=== PATIENT | female | born 1990 | race Caucasian/White ===

== ENCOUNTER 2018-05-18 05:40 | Inpatient (IN) | payer BC ==
[2018-05-18 06:26] VITALS: BMI 29.5
[2018-05-18] MEDS ORDERED: Acetaminophen 500 MG TAB PO PRN (06:50)
[2018-05-18] MEDS ORDERED: Ondansetron PF 4 MG/2 ML Vial IVP PRN ×3 (06:50→19:18)
[2018-05-18] MEDS ORDERED: Zolpidem Tartrate 5 MG TAB PO PRN ×2 (06:50→19:18)
[2018-05-18] MEDS ORDERED: Butorphanol Tartrate 1 MG/ML VIAL SLOW IVP PRN (06:50)
[2018-05-18] MEDS ORDERED: Promethazine HCl 25 MG/ML VIAL IM PRN ×2 (06:50→14:52)
[2018-05-18] MEDS ORDERED: Lidocaine 1% (PF) 30 ML VIAL SC PRN (06:52)
[2018-05-18] MEDS ORDERED: Acetaminophen/Codeine 30-300mg Tablet PO PRN ×4 (06:52→19:18)
[2018-05-18] MEDS ORDERED: Misoprostol 200 MCG TAB PR PRN (06:52)
[2018-05-18] MEDS ORDERED: NS / Oxytocin 40 units/1000ml 1,000 ML IV PRN (06:52)
[2018-05-18] MEDS ORDERED: Ibuprofen 800 MG TAB PO PRN (06:52)
[2018-05-18] MEDS ORDERED: NS w/ Oxytocin 10 units 500 ML IV SCH ×2 (07:00)
[2018-05-18 08:04] LABS: Hemoglobin 12.8 g/dL (12.0-16.0); Mean Corpuscular HGB CONC 33.3 g/dL (32.0-36.0); Mean Platelet Volume 9.2 fL (7.4-10.4); Platelet Count 208 thou/uL (130-400); RBC Distribution Width 11.6 % (11.5-14.5); Red Blood Cell (RBC) Count 4.14 mill/uL (4.20-5.40); White Blood Cell (WBC) Count 8.6 thou/uL (4.8-10.8)
[2018-05-18] MEDS ORDERED: Bupivacaine 0.25% 10 ML VIAL ONE (08:16)
[2018-05-18] MEDS ORDERED: Fentanyl 4 mcg/Bup 0.1% Cadd 100 ML ONE ×2 (10:58→16:50)
[2018-05-18] MEDS ORDERED: Fentanyl 100 MCG/2 ML VIAL ONE (11:12)
[2018-05-18 11:29] LABS: HBSAg Index 0.15 S/CO (0-0.99); Hep B Surf Ag Non-Reactive S/CO (NonReactive)
[2018-05-18] MEDS: Lactated Ringer's 1,000 ML IV SCH ×2 (11:50→14:46)
[2018-05-18 12:54] LABS: Syphilis Antibody Nonreactive (Nonreactive); Syphilis Antibody Index 0.04 S/CO (<1.00 Non-Reactive)
[2018-05-18] MEDS ORDERED: diphenhydrAMINE 50 MG/ML VIAL IVP PRN (14:52)
[2018-05-18] MEDS ORDERED: Eucerin (Mineral Oil/Petrolatum,White) 30 gm Jar TOP PRN (14:52)
[2018-05-18] MEDS ORDERED: Acetaminophen 325 MG TAB PO PRN (14:52)
[2018-05-18] MEDS ORDERED: Naloxone HCl 0.4 mg/ml Vial IVP PRN ×2 (14:52)
[2018-05-18] MEDS ORDERED: ePHEDrine/0.9% NaCl/PF SYRINGE 50 mg/10 ml SLOW IVP PRN (14:52)
[2018-05-18] MEDS ORDERED: Lactated Ringer's 500 ML IV PRN (14:52)
[2018-05-18] MEDS ORDERED: Fentanyl 100 MCG/2 ML VIAL EPIDURAL SCH (15:00)
[2018-05-18] MEDS ORDERED: Fentanyl 4 mcg/Bupivacaine 0.1% Cassette 100 ML EPIDURAL SCH (15:00)
[2018-05-18] MEDS ORDERED: Communication Order-Pharmacy FS SCH (15:00)
[2018-05-18] MEDS ORDERED: Adacel (T-DAP) 0.5 ML VIAL IM ONE (19:18)
[2018-05-18] MEDS ORDERED: Milk Of Magnesia 30 ML UDCUP PO PRN (19:18)
[2018-05-18] MEDS ORDERED: Benzocaine/Menthol 20-0.5% 60 ML CAN TOP PRN (19:18)
[2018-05-18] MEDS ORDERED: Misoprostol 200 MCG TAB VAG PRN (19:18)
[2018-05-18] MEDS ORDERED: diphenhydrAMINE 25 MG CAP PO PRN (19:18)
[2018-05-18] MEDS ORDERED: Bisacodyl 10 MG SUPP PR PRN (19:18)
[2018-05-18] MEDS ORDERED: Lanolin Ointment 7 GM TUBE TOP PRN (19:18)
[2018-05-18] MEDS ORDERED: Preparation H Ointment 28 GM TUBE PR PRN (19:18)
[2018-05-18] MEDS ORDERED: NS / Oxytocin 40 units/1000ml 1,000 ML IV SCH (19:30)
[2018-05-18] MEDS: Ibuprofen 800 MG TAB PO SCH (22:40)
[2018-05-18] MEDS: Docusate Calcium (SURFAK) 240 MG CAP PO SCH (22:40)
[2018-05-19] MEDS: Ibuprofen 800 MG TAB PO SCH ×4 (05:22→21:00)
[2018-05-19] MEDS: Ferrous Sulfate 325 MG TAB PO SCH ×2 (07:44→15:25)
[2018-05-19] MEDS: Docusate Calcium (SURFAK) 240 MG CAP PO SCH ×3 (09:05→21:01)
[2018-05-19] MEDS: Prenatal Vitamin 1 TAB PO SCH (09:05)
[2018-05-19] MEDS ORDERED: Acetaminophen 500 MG TAB PO PRN (17:39)
[2018-05-19] MEDS: traMADol HCl 50 MG TAB PO PRN ×2 (20:51→21:01)
[2018-05-20] MEDS: Ibuprofen 800 MG TAB PO SCH (05:45)
[2018-05-20] MEDS: Prenatal Vitamin 1 TAB PO SCH (09:20)
[2018-05-20] MEDS: Docusate Calcium (SURFAK) 240 MG CAP PO SCH (09:20)
[2018-05-20] MEDS: Ferrous Sulfate 325 MG TAB PO SCH (12:40)
[2018-05-20 13:09] VITALS: BP 111/73; TEMP 98.7
--- NOTE | 2018-06-22 00:54 | OP ---
DELIVERY NOTE DATE OF DELIVERY: 05/18/2018 ATTENDING STAFF PHYSICIAN: Dario Nieto MD SURGEON: Dario Nieto MD ADMITTING DIAGNOSIS: Term intrauterine at 40 weeks. PREOPERATIVE DIAGNOSIS: Induction of labor. POSTOPERATIVE DIAGNOSIS: Status post uncomplicated vaginal delivery. PROCEDURES: 1. Vaginal delivery. 2. Perineal laceration repair. FINDINGS: 1. A vigorous female , 7 pounds and 10 ounces, Apgars 8 and 9. 2. A second-degree perineal laceration. BLOOD LOSS: Less than 150 (QBL 107 mL). HISTORY AND INDICATIONS: Ms. Kristina Rojas is a very pleasant 27-year-old white female , who i s followed in my clinic for obstetric care. Kristina had an uncomplicated . She presented to labor and delivery on the morning of 05/18/2018 for induction of labor. At the time of admission, she was 4-5 cm dilated, 90% effaced and -2 station. Pitocin was started on the morning of 8. Amniotomy was performed and clear fluid was noted. The patient subsequently progressed without p roblems or complications and had an uncomplicated vaginal delivery. PROCEDURE: The patient progressed to complete dilation, complete effacement and +3 station. I was c alled to the delivery when the patient was actively pushing. heart tones were reassuring. The re was a spontaneous vaginal delivery over an intact perineum. Delivery of vigorous female infant, 7 pounds and 10 ounces. Apgars were 8 and 9 at 1 and 5 minutes respectively. Cord blood was obtained . The placenta was spontaneously removed from the uterus. There was a second-degree laceration, whi ch was repaired with 3-0 chromic suture. Estimated blood loss less than 150 mL (QBL 107 mL). Mother and baby were doing well . The female was given to mom for skin to skin contact. The patient and her were very appreciative of the care rendered here at [facility] this evening.
== END 2018-05-20 13:00 | disposition home or self-care (01) | DRG 807 ==
LOC: L&D 05:40 → 3SW 21:34
PROVIDERS: ADMIT Obstetrics & Gynecology; ATTEND Obstetrics & Gynecology
PROC: 10E0XZZ Delivery of Products of Conception, External Approach (ICD-10-PCS; principal; 2018-05-18)
PROC: 0KQM0ZZ Repair Perineum Muscle, Open Approach (ICD-10-PCS; 2018-05-18)
DX: O70.1 Second degree perineal laceration during delivery (principal); Z37.0 Single live birth; Z3A.40 40 weeks gestation of pregnancy
CPT/HCPCS: 36415; 51701; 51702; 85027; 86780; 86850; 86900; 86901; 87340; 90715; J3010; S0020